=== PATIENT | female | born 1995 | race African-American/Black ===

== ENCOUNTER 2019-06-18 14:54 | Emergency (ER) | payer OTHER ==
[2019-06-18 14:58] VITALS: BP 114/66; PULSE 112; TEMP 98.4; BMI 18.3
[2019-06-18] MEDS ORDERED: ONDANSETRON *ODT* 4 MG TABLET SL ONE (15:19)
--- NOTE | 2019-06-18 15:47 | PDOC ---
History of Present Illness - General Chief Complaint: Nausea/Vomiting Stated Complaint: NAUSEA/VOMITING Time Seen by Provider: 06/18/19 15:19 - History of Present Illness Initial Comments: 06/18/19 15:46 23-year-old female without comorbidities presents for evaluation of nausea and vomiting 3 episodes this morning. She states she was exposed to a sick family member yesterday with the same symptoms. However she is unsure if she is . Past History - Past Medical History Allergies/Adverse Reactions: Allergies Allergy/AdvReac Type Severity Reaction Status Date / Time No Known Allergies Allergy Verified 06/18/19 14:58 Home Medications: Ambulatory Orders Pnv No.95/Ferrous Fum/Folic AC [ Formula] 1 each PO DAILY #30 tablet 01/01 COPD: No - Suicide/Smoking/Psychosocial Hx Smoking History: Never smoked Hx Alcohol Use: No Drug/Substance Use Hx: No Review of Systems - Review of Systems Constitutional: No: Fever ABD/GI: Yes: Nausea, Vomiting. No: Constipated, Diarrhea *Physical Exam - Vital Signs Last Vital Signs Temp Pulse Resp BP Pulse Ox 98.4 F 112 H 16 114/66 98 06/18/19 14:56 06/18/19 14:56 06/18/19 14:56 06/18/19 14:56 06/18/19 14:56 - Physical Exam Comments: 06/18/19 15:47 HEAD: NC/AT EYES: Conjuntiva clear Ears: Canals and TM's normal NOSE: No d/c THROAT: Moist mucous membrances, oral pharanx clear, uvula midline NECK: Supple without adenopathy CARDIAC: S1 S2 LUNGS: CTA Full and Equal breath sounds ABDOMEN: Soft NT ND MS: Full ROM in all joints without edema NEUROLOGIC: No gross sensory or motor deficits, NVID SKIN: Normal color and temperature no lesions or rashes Medical Decision Making - Medical Decision Making 06/18/19 15:57 Nausea most likely due to will start vitiman and have pt f/u with OB *DC/Admit/Observation/Transfer Diagnosis at time of Disposition: Nausea/vomiting in - Discharge Dispostion Disposition: HOME Condition at time of disposition: Stable Decision to Admit order: No - Referrals Referrals: Monica Fung MD [Staff Physician] - - Patient Instructions Printed Discharge Instructions: Medications and , Diet Additional Instructions: Follow-up with obstetrics and gynecology in the next 1-2 days without fail. Please take the vitamins as directed and return to the emergency room should you have further issues. - Post Discharge Activity
[2019-06-18] MEDS ORDERED: ONDANSETRON 4 MG TABLET PO ONE (15:53)
== END 2019-06-18 16:47 | disposition home or self-care (01) ==
LOC: JERFT 14:54
DX: O26.891 Other specified pregnancy related conditions, first trimester (principal); Z3A.00 Weeks of gestation of pregnancy not specified; R11.2 Nausea with vomiting, unspecified
CPT/HCPCS: 84703; 99281-25; Q0162

== ENCOUNTER 2020-10-04 14:04 | Emergency (ER) | payer OTHER ==
[2020-10-04 14:20] VITALS: BP 120/73; PULSE 85; TEMP 98
[2020-10-04 17:06] LABS: EPI CELLS 5 /uL (0-25.1); HYALINE CASTS 1 /uL (0-3.1); PH,URINE 6.5 (5.0-8.0); URINE APPEARANCE CLEAR; URINE BACTERIA 227 /uL (0-1359); URINE BILIRUBIN NEGATIVE (NEGATIVE); URINE COLOR YELLOW; URINE GLUCOSE (UA) NEGATIVE (NEGATIVE); URINE KETONE NEGATIVE (NEGATIVE); URINE LEUK ESTERASE NEGATIVE (NEGATIVE); URINE NITRITE NEGATIVE (NEGATIVE); URINE PROTEIN NEGATIVE (NEGATIVE); URINE RBC 663 /uL (0-23.9); URINE UROBILINOGEN 0.2 mg/dL (0.2-1.0); URINE WBC 5 /uL (0-25.8)
== END 2020-10-04 16:55 | disposition home or self-care (01) ==
LOC: JER 14:04
DX: O20.0 Threatened abortion (principal); Z3A.11 11 weeks gestation of pregnancy
CPT/HCPCS: 76801-TC; 81003; 86850; 86900; 86901; 87086; 99284-25